=== PATIENT | female | born 1990 | race Caucasian/White ===

== ENCOUNTER 2024-03-16 08:17 | Emergency (ER) | payer OTHER, SELFPAY ==
[2024-03-16 08:59] VITALS: BP 123/79; PULSE 73; RESP 16; TEMP 36.8; O2SAT 100
--- NOTE | 2024-03-16 09:01 | ED.WOUNDLAC ---
HPI - Wound/Laceration General Chief Complaint: Wound/Laceration Stated Complaint: right foot laceration Time Seen by Provider: 03/16/24 09:01 Source: patient and RN notes reviewed Mode of arrival: ambulatory Limitations: no limitations History of Present Illness HPI narrative: 33-year-old female presents with concern for laceration to her right foot. Reports she stepped on a piece of glass this morning. She denies decreased sensation, strength, range of motion of the foot. She is not up-to-date on her tetanus vaccination Related Data Home Medications Medication Instructions Recorded Confirmed prednisone 10 mg tablet 10 mg PO DAILY 03/16/24 03/16/24 Allergies Allergy/AdvReac Type Severity Reaction Status Date / Time cephalexin Allergy Mild Hives Verified 03/16/24 08:58 Review of Systems Review of Systems: CONSTITUTIONAL: Denies malaise, chills, sweats, or fever. SKIN: Reports laceration to right foot MUSCULOSKELETAL: Denies muscle skeletal pain NEUROLOGIC: Denies numbness, weakness All systems reviewed & are unremarkable except as noted in HPI and below PMFSH Comments At time of signature, agree with nursing past medical, surgical, social and family history. There is no relevant family history pertinent to the presenting complaint Exam Narrative: GENERAL: Well-appearing, well-nourished, and in no acute distress. HEAD: Normocephalic, atraumatic. EYES: PERRLA, conjunctivae clear ENT: Mucous membranes moist. NECK: Supple. No lymphadenopathy CHEST: Clear to auscultation. No respiratory distress. HEART: Regular rate and rhythm. MUSC: Normal strength, sensation, range of motion in the right foot and digits SKIN: Warm, dry. NEURO: Alert and oriented x3. PSYCH: Normal mood and affect Extrem: Ankle/foot/toe images: 1. 1 cm linear laceration into the subcutaneous tissue Course Course Emergency Course: Patient is aware of diagnosis, understands and agrees to treatment plan. Anticipatory guidance given. Patient agrees to follow-up as directed and is aware of reasons to seek care at the emergency department. Portions of this record may have been created with voice recognition software Level of Care: Express Care Visit Vital Signs Vital signs: Vital Signs Temperature 98.3 F 03/16/24 08:59 Pulse Rate 73 03/16/24 08:59 Respiratory Rate 16 03/16/24 08:59 Blood Pressure 123/79 03/16/24 08:59 Pulse Oximetry 100 03/16/24 08:59 Temperature 98.3 F 03/16/24 08:59 Pulse Rate 73 03/16/24 08:59 Respiratory Rate 16 03/16/24 08:59 Blood Pressure 123/79 03/16/24 08:59 Pulse Oximetry 100 03/16/24 08:59 Reviewed. Procedures Laceration Laceration 1: Date: 03/16/24 Time: 09:15 Site: lower extremity Side (If applicable): right Size (cm): 1 Description: linear Depth: simple, single layer Local Anesthetic: lidocaine 1% Amount of anesthesia used (mL): 1 Pre-repair: wound explored and irrigated ====== Skin Level ====== Skin layer closed with: nylon Size (cm): 4-0 Number of sutures: 2 Technique: simple, interrupted ====== Subcutaneous Layer ====== ====== Muscle Layer ====== ====== Tendon Layer ====== MDM - Wound/Laceration MDM Narrative Medical decision making narrative: Wound explored for foreign body and copious irrigation provided with no evidence of FB. Discussed the potential of retained foreign body with the patient and signs/symptoms that should prompt the patient to immediately go to the ED for reevaluation. Local anesthesia was obtained by injecting 1% lidocaine at the laceration site. The laceration was then irrigated. The wound was explored and no foreign bodies were found. There was no evidence of tendon or nerve lacerations. A sterile dressing was then applied and anticipatory guidance was provided. Tetanus prophylaxis was given Diff
[2024-03-16] MEDS: TETANUS,DIPHTHERIA,AC PERTUSSIS ADULT (0.5 ML) BOOSTRIX IM (09:12)
[2024-03-16] MEDS: LIDOCAINE HCL 1% LOCAL INJ 2 ML AMPUL INFILTRATE (09:15)
== END 2024-03-16 09:40 | disposition home or self-care (01) ==
PROVIDERS: Emergency Provider Nurse Practitioner
DX: S91.311A Laceration without foreign body, right foot, initial encounter (principal); W25.XXXA Contact with sharp glass, initial encounter; Z23 Encounter for immunization
CPT/HCPCS: 12001; 90471; 90715; 99202; G0463